=== PATIENT | male | born 1950 | race Caucasian/White ===

== ENCOUNTER → 2020-06-05 08:37 | Outpatient (BNVA) | payer OTHER, SELFPAY | PROVIDERS: PCP Internal Medicine; Visit Provider Internal Medicine | DX: Z76.89 Persons encountering health services in other specified circumstances (principal) ==

== ENCOUNTER → 2020-12-10 09:03 | Outpatient (BNVA) | payer MEDICARE, SELFPAY | PROVIDERS: PCP Internal Medicine; Visit Provider Internal Medicine | DX: I48.19 Other persistent atrial fibrillation (principal); I48.3 Typical atrial flutter; I42.8 Other cardiomyopathies; I10 Essential (primary) hypertension; Q21.1 Atrial septal defect; R07.2 Precordial pain | CPT/HCPCS: 93005; 99212 ==

== ENCOUNTER 2020-12-15 11:03 | Outpatient (REF) | payer MEDICARE, SELFPAY ==
[2020-12-15 15:13] LABS: Anion Gap 14 (12-20); Blood Urea Nitrogen 18 mg/dL (9-16); Calcium 9.5 mg/dL (8.4-10.2); Carbon Dioxide 31 mmol/L (22-29); Chloride 102 mmol/L (96-108); Estimated Glomerular Filt Rate 59; Glucose Random 119 mg/dL (60-115); Potassium 3.6 mmol/L (3.3-5.1); Sodium 143 mmol/L (135-145)
== END 2020-12-15 11:04 | disposition home or self-care (01) ==
LOC: HO.HMGCLDS 11:03
PROVIDERS: PCP Internal Medicine; Visit Provider Internal Medicine
DX: I10 Essential (primary) hypertension (principal)
CPT/HCPCS: 36415; 80048

== ENCOUNTER → 2021-01-06 14:44 | Outpatient (REF) | payer MEDICARE, SELFPAY | LOC: HO.SL 14:44 | PROVIDERS: PCP Internal Medicine; Visit Provider Internal Medicine | DX: G47.33 Obstructive sleep apnea (adult) (pediatric) (principal); I42.8 Other cardiomyopathies | CPT/HCPCS: 95806 ==

== ENCOUNTER → 2021-05-27 10:18 | Outpatient (REF) | payer MEDICARE, SELFPAY ==
--- NOTE | 2021-05-27 10:22 | CA_ITS ---
Transthoracic Echocardiogram Patient (Last, First, Middle): Lawrence Alexander, Gender: Male Date of : 1950 Age: 71 Procedure Date: 05/27/2021 Procedure Type: Transthoracic Echocardiogram Location: OP Height: 177.8 cm Weight: 95.26 kg BSA: 2.13 m2 Heart Rate: bpm BP: 120 / 60 mmHg Staff Physical Therapist: MILADY Referring MD: Lawrence Odell MD Examining Officer: Alberto Vanessa MD Symptoms: I42.8 - Other cardiomyopathies Study Quality: Technically Difficult ECG Rhythm: Atrial Fibrillation Conclusions: - 1. Mildly reduced LV systolic function with LVEF of 45-50% 2. Mild mitral regurgitation 3. Normal RVSP 4. No pericardial effusion Findings Left Ventricle Normal left ventricular cavity size. There is normal left ventricular wall thickness. The left ventricular systolic function is mildly decreased. The visually estimated ejection fraction is between 45-50%. Diastolic function is indeterminate on the basis of available data. Right Ventricle Normal right ventricular cavity size. Atria The left atrium is normal in size. There is lipomatous hypertrophy of the interatrial septum. There is no evidence of interatrial shunt. The right atrium was not well visualized. Aortic Valve There is mild calcification of the aortic valve. There is no aortic valve stenosis. There is no aortic valve regurgitation. Mitral Valve There is mild anterior and posterior mitral leaflet thickening. There is mild mitral valve regurgitation. There is no mitral valve stenosis. Pulmonic Valve The pulmonic valve was not well visualized. Tricuspid Valve Likely normal tricuspid valve structure and function. There is mild tricuspid valve regurgitation. The right ventricular systolic pressure is normal. The right ventricular systolic pressure is 26 mmHg. Normal right atrial pressure. There is no evidence of pulmonary hypertension. Great Vessels All visible segments of the aorta are normal in size. The pulmonary artery was not well visualized. Venous The inferior vena cava is normal in size and collapses greater than 50% with inspiration. Pericardium/Pleural There is no evidence of pericardial effusion. Prior Study Comparison No significant change compared to prior study dated: 08/01/2019. Measurements 2D Linear Measurements IVSd: 1.14 0.6-0.9/0.6-1.0 cm LVIDd: 5.46 3.9-5.3/4.2-5.9 cm LVIDd Index: 2.56 2.4-3.2/2.2-3.1 cm/m2 LVIDs: 3.85 2.0-3.6 cm LVPWd: 0.83 0.7-1.1 cm Ao Root: 3.40 2.1-3.5 cm LA Diam: 4.80 2.7-3.8/3.0-4.0 cm LAIDs Index: 2.25 1.5-2.3 cm/m2 LV Mass: 257.47 67-162/88-224 g LV Mass Index: 120.88 43-95/49-115 g/m2 LVOT Diam: 2.10 3.0+(-)1.3 cm 2D Systolic Function EF 4C: 51.70 >55% Mitral Valve MV Pk E: 0.81 MV Decel Time: 170.00 E'Lateral: 13.40 E'Medial: 8.43 E/E' Med: 9.60 E/E' Lat: 6.10 PHT: 50.00 MVA PHT: 4.40 Decel [place]: 4.80 Aortic Valve AoV Pk [place]: 1.38 AoV Pk Grad: 8.00 LVOT LVOT Pk [place]: 0.86 LVOT Mn [place]: 0.57 LVOT VTI: 0.15 LVOT Pk Grad: 3.00 LVOT Mn Grad: 2.00 LVOT Diam: 2.10 LVOT Area: 3.46 Diastolic Function MV Pk E: 0.81 E'Medial: 8.43 E/E' Med: 9.60 E' Laterial: 13.40 E/E' Lat: 6.10 Right Ventricle TAPSE (mm): 1.73 TVS' [place]: 10.08 Tricuspid Valve TR Pk [place]: 2.38 TR Pk Grad: 23.00 RA Press: 3.00 RVSP: 26.00 Great Vessels Aorta Ao Root-2D: 3.40 2.0-3.7 cm Updated in Other Vendor System with Status of Final Alberto Vanessa MD electronically signed on 05/27/2021 11:26:00 AM with status of Final
== END ==
LOC: HO.CARD 10:18
PROVIDERS: Visit Provider Internal Medicine
DX: I42.8 Other cardiomyopathies (principal)
CPT/HCPCS: 93306

== ENCOUNTER → 2021-06-17 09:05 | Outpatient (BNVA) | payer MEDICARE, SELFPAY | PROVIDERS: PCP Internal Medicine; Visit Provider Internal Medicine | DX: I48.19 Other persistent atrial fibrillation (principal); I48.3 Typical atrial flutter; I42.8 Other cardiomyopathies; Q21.1 Atrial septal defect; I10 Essential (primary) hypertension; G47.33 Obstructive sleep apnea (adult) (pediatric); R07.2 Precordial pain | CPT/HCPCS: 99212 ==

== ENCOUNTER 2024-04-04 06:26 | Day surgery (SDC) | payer MEDICARE, SELFPAY ==
[2024-04-02 13:52] VITALS: BMI 30.7
--- NOTE | 2024-04-04 07:05 | HO.ANESPROP2 ---
[facility] Active Problems Active Problems: All Active Problems BRITTNY (obstructive sleep apnea) (Acute) Precordial chest pain (Acute) Essential hypertension (Acute) ASD (atrial septal defect) (Acute) Cardiomyopathy (Acute) Typical atrial flutter (Acute) Persistent atrial fibrillation (Acute) Past Medical History Medical History (Updated 04/02/24 @ 13:53 by Kya Linares RN) Upper GI bleed GERD (gastroesophageal reflux disease) History of cardioversion COPD (chronic obstructive pulmonary disease) Essential hypertension ASD (atrial septal defect) Cardiomyopathy Typical atrial flutter Persistent atrial fibrillation Family History Family History Father No problems noted. Mother No problems noted. Family history of problems with anesthesia: No Surgical History Surgical History (Updated 04/02/24 @ 13:51 by Kya Linares RN) History of esophagogastroduodenoscopy (EGD) H/O colonoscopy Hx of heart artery stent History of cardiac radiofrequency ablation (~03/2009) History of atrial septal defect repair (~1970) History of Problems with Anesthesia: No Social History Social History Patient Tobacco Use Status: Never used Tobacco Advance Directives: No Advance Directives Information Provided: Yes Meds Allergies Allergy/AdvReac Type Severity Reaction Status Date / Time No Known Allergies Allergy Mild NKA Verified 06/17/21 09:20 Home Medications ?Medication ?Instructions ?Recorded ?Confirmed ?Last Taken ?Type lansoprazole 30 mg capsule,delayed 30 mg PO DAILY 06/05/20 04/02/24 Unknown History release lorazepam 0.5 mg tablet 0.5 mg PO BID PRN Anxiety 06/05/20 04/02/24 Unknown History clopidogrel 75 mg tablet 75 mg PO DAILY 04/02/24 04/02/24 Unknown History cyanocobalamin (vitamin B-12) 1,000 mcg PO DAILY 04/02/24 04/02/24 Unknown History 1,000 mcg tablet,extended release (Vitamin B-12 ER) digoxin 125 mcg (0.125 mg) tablet 125 mcg PO DAILY 04/02/24 04/02/24 Unknown History fluticasone fur. 100 mcg-umeclid 1 inh inhalation DAILY 04/02/24 04/04/24 04/04/24 05:30 History 62.5 mcg-vilant 25 mcg inhalat.powder (Trelegy Ellipta) levalbuterol tartrate 45 2 puff inhalation Q4-6H PRN 04/02/24 04/02/24 Unknown History mcg/actuation aerosol inhaler Shortness Of Breath (Xopenex HFA) sacubitril 97 mg-valsartan 103 mg 1 tab PO BID 04/02/24 04/02/24 Unknown History tablet Exam Height,Weight and Vital Signs: Height 5 ft 10 in Weight 97.069 kg Airway Mallampati Class: II TM Dist: >3cm Neck ROM: Full Heart: rrr Lungs: cta Assessment and Plan Assessment Anesthesia Assessment: Anesthesia Plan Discussed and Chart Reviewed Final Anesthetic Review Family History of Problems with Anesthesia: No History of Problems with Anesthesia: No NPO: Yes ASA Class: III Final Preanesthetic Review: No Changes in Pt Med Stat, Meds/Allgs Chart Reviewed and Consent Obtained/Reviewed Patient Risk: Low Procedure Risk: Low Anesthetic Plan Anesthetic Plan: MAC: Disposition: Standard PACU
[2024-04-04 07:15] VITALS: BP 141/61; PULSE 102; RESP 18; TEMP 36.6; O2SAT 96; BMI 30.4
[2024-04-04] MEDS: Lactated Ringers 1,000 ML 100 ML IVCONT (07:32)
[2024-04-04 08:30] VITALS: BP 142/104; PULSE 87; RESP 16; TEMP 36.6; O2SAT 95
--- NOTE | 2024-04-04 08:35 | PM.OP ---
Brief Operative Note Date of Service: 04/04/24 Pre-op diagnosis: Screening Post-op diagnosis: other (Diverticulosis) Procedure: Colonoscopy to the cecum Surgeon: Bryan Mitchell MD Anesthesia: MAC Was an Dentist/Owner used for this Procedure?: No Estimated blood loss (mL): 0 Pathology: none sent Condition: stable Disposition: PACU
[2024-04-04 08:45] VITALS: BP 105/69; PULSE 86; RESP 16; O2SAT 95
[2024-04-04 08:50] VITALS: BP 141/79
[2024-04-04 09:00] VITALS: BP 127/77; PULSE 86; RESP 16; TEMP 36.7; O2SAT 96
--- NOTE | 2024-04-04 09:06 | OP_ITS ---
DATE OF SERVICE: 04/04/2024 SURGEON: Bryan Mitchell MD INDICATIONS: The patient presents for evaluation of personal history of tubular adenoma of the colon and need for colorectal cancer screening. Full consent has been obtained from him for this, including risks of bleeding and perforation. PREOPERATIVE DIAGNOSIS: POSTOPERATIVE DIAGNOSIS: PROCEDURE PERFORMED: Colonoscopy to the cecum. ESTIMATED BLOOD LOSS: COMPLICATIONS: ANESTHESIA: Monitored anesthesia care. ASSISTANTS: SPECIMENS: PREOPERATIVE DIAGNOSES: Colorectal cancer screening and personal history of tubular adenoma of the colon. POSTOPERATIVE DIAGNOSES: Colorectal cancer screening and personal history of tubular adenoma of the colon, diverticulosis, and internal hemorrhoids. DESCRIPTION OF PROCEDURE: The patient was placed in the left lateral decubitus position. The digital rectal exam revealed no abnormalities. The Olympus video pediatric colonoscope was entered into the rectum and advanced easily to the cecum. Once in the cecum, I did identify normal-appearing cecal pouch with appendiceal orifice and a normal-appearing ileocecal valve. The entire cecum and ileocecal valve appeared normal. The scope was slowly withdrawn assessing all mucosal surfaces carefully. Preparation was excellent. The only polyps I visualized were grossly hyperplastic polyps and all less than 5 mm in size in the area of the sigmoid colon and rectum. Given this finding, his age, and the fact that he has to go back on to blood thinners, I opted not to biopsy nor remove them as I did not think they were clinically significant nor would pose a future problem.. I did not visualize any other polyps, colitis, or angiodysplasia. There was a mild amount of sigmoid diverticulosis. In the rectum, scope was retroflexed visualizing some internal hemorrhoids, but no other pathology. The rectal mucosa appeared normal. The scope was straightened and withdrawn from the patient. He tolerated the procedure well and was returned to the recovery area in stable condition. IMPRESSION: 1. Diverticulosis. 2. Internal hemorrhoids. PLAN: Given his age and today's findings, I do not think he will need any further screening colonoscopies. He was advised to resume his Xarelto and Plavix today. He will otherwise see me on a p.r.n. basis. He will also continue his PPI long-term. He was also advised to resume his iron. MD TRAY [place]/MAGY / [id number] MANDIE
== END 2024-04-04 09:29 | disposition home or self-care (01) ==
PROVIDERS: PCP Internal Medicine; Visit Provider Internal Medicine
PROC: 0DJD8ZZ Inspection of Lower Intestinal Tract, Via Natural or Artificial Opening Endoscopic (ICD-10-PCS; CPT 45378; principal; 2024-04-04 07:30)
DX: Z12.11 Encounter for screening for malignant neoplasm of colon (principal); K63.5 Polyp of colon; K57.30 Diverticulosis of large intestine without perforation or abscess without bleeding; K64.8 Other hemorrhoids; Z86.0101 Personal history of adenomatous and serrated colon polyps; I10 Essential (primary) hypertension; I48.19 Other persistent atrial fibrillation; I48.3 Typical atrial flutter; I42.9 Cardiomyopathy, unspecified; G47.33 Obstructive sleep apnea (adult) (pediatric); Z79.899 Other long term (current) drug therapy
CPT/HCPCS: G0105; J2003; J2704